=== PATIENT | female | born 1935 | race Caucasian/White ===

== ENCOUNTER 2019-05-06 23:45 | Emergency (ER) | payer OTHER, MEDICAID ==
[~2019-05-06] VITALS: Ht 157.5 cm; Wt 56.7 kg
[~2019-05-06 23:45] MED LIST: ATEN100T53; CARB25TA75; FERR325T47; FUROSEMIDE; KLOR CON; LORA-655; OME20GT; PAROXETINE; PHEN100C70; SIMV10TA73; TRAM-411; WARF1TAB; ZALE5CAP; [UNRECOGNIZED DRUG - CODE]
[2019-05-07 05:10] VITALS: BP 99/54
== END 2019-05-07 07:37 | disposition home or self-care (01) ==
LOC: ER 23:45
DX: S40.021A Contusion of right upper arm, initial encounter (principal); S50.01XA Contusion of right elbow, initial encounter; S20.211A Contusion of right front wall of thorax, initial encounter; I25.10 Atherosclerotic heart disease of native coronary artery without angina pectoris; K21.9 Gastro-esophageal reflux disease without esophagitis; I10 Essential (primary) hypertension; Z88.8 Allergy status to other drugs, medicaments and biological substances; Z79.899 Other long term (current) drug therapy; Z98.890 Other specified postprocedural states; W22.8XXA Striking against or struck by other objects, initial encounter; Y93.89 Activity, other specified; Y92.002 Bathroom of unspecified non-institutional (private) residence as the place of occurrence of the external cause; Y99.8 Other external cause status
CPT/HCPCS: 71101; 73060; 73080; 93005; 93971